=== PATIENT | female | born 1960 | race Caucasian/White ===

== ENCOUNTER → 2016-10-25 | Outpatient (CLI) | payer OTHER ==
--- NOTE | ~2016-10-25 | 2DMMODE ---
[facility] [address] [place] [address] 2 D/M-MODE ECHOCARDIOGRAM Name: SADIE MORENO Room #: REG CL [facility]#: [id number] Admission: 10/25/16 Attend Phys: Rhett Andrade Discharge: Date of : 64 Date of Service: 10/25/16 [facility] Report #: [id number] THIS REPORT FOR: //name// APPROVED REPORT Study performed: 10/25/2016 09:46:46 EXAM: Comprehensive 2D, Doppler, and color-flow Echocardiogram Patient Location: Out-Patient Status: routine Other Information Study Quality: Adequate Indications Chest Pain 2D Dimensions RVDd: 38.04 mm LVEF(%): 70.23 (>50%) IVSd: 12.41 (7-11mm) LVOT Diam: 22.85 (18-24mm) LVDd: 49.09 mm PWd: 9.57 (7-11mm) Ascending Ao: 35.56 (22-36mm) LVDs: 29.55 (25-40mm) Aortic Root: 35.82 mm Yancey's LVEF: 70.23 % Volumes Left Atrial Volume (Systole) Single Plane 4CH: 51.47 mL Single Plane 2CH: 40.06 mL LA ESV Index: 20.00 mL/m2 Aortic Valve AoV Peak Huber.: 1.28 m/s AO Peak Gr.: 6.51 mmHg LVOT Max P.37 mmHg LVOT Max V: 1.16 m/s JACI Vmax: 3.72 cm2 Mitral Valve E/A Ratio: 0.9 MV Decel. Time: 183.94 ms MV E Max Huber.: 0.68 m/s MV A Huber.: 0.77 m/s MV PHT: 53.34 ms IVRT: 96.[address] [facility] [place] [address] 2 D/M-MODE ECHOCARDIOGRAM Name: SADIE MORENO Room #: REG HERN[place]N John#: [id number] Admission: 10/25/16 Attend Phys: Rhett Andrade Discharge: Date of : 64 Date of Service: 10/25/16 [facility] Report #: [id number] Pulmonary Valve PV Peak Huber.: 1.01 m/s PV Peak Gr.: 4.06 mmHg Pulmonary Vein P Vein S: 0.61 m/s P Vein A: 0.35 m/s P Vein D: 0.40 m/s P Vein A Dur.: 120.0 msec P Vein S/D Ratio: 1.52 Tricuspid Valve TR Peak Huber.: 2.68 m/s RAP Estimate: 5.00 mmHg TR Peak Gr.: 28.65 mmHg PA Pressure: 34.00 mmHg Left Ventricle The left ventricle is normal size. There is normal LV segmental wall motion. Mild concentric left ventricular hypertrophy. The left ventricular systolic function is normal. The left ventricular ejection fraction is within the normal range. LVEF is 65%. Grade I - abnormal relaxation pattern. Right Ventricle The right ventricle is normal size. The right ventricular systolic function is normal. Atria The left atrium size is normal. The right atrium size is normal. Aortic Valve The aortic valve is normal in structure. Trace aortic regurgitation. There is no aortic valvular stenosis. Mitral Valve The mitral valve is normal in structure. Trace mitral regurgitation. Tricuspid Valve The tricuspid valve is normal in structure. There is trace tricuspid regurgitation. The right atrial pressure is estimated at 5 mmHg. There is mild pulmonary hypertension with an estimated PAP of 34 mmHg. Pulmonic Valve The pulmonary valve is normal in structure. Trace pulmonic regurgitation. [facility] [address] [place] [address] 2 D/M-MODE ECHOCARDIOGRAM Name: SADIE MORENO Room #: REG CL Dora#: [id number] Admission: 10/25/16 Attend Phys: Rhett Andrade Discharge: Date of : 64 Date of Service: 10/25/16 [facility] Report #: [id number] Great Vessels The aortic root is normal in size. The ascending aorta is normal in size. IVC is normal in size and collapses >50% with inspiration. Pericardium There is no pericardial effusion. <Conclusion> The left ventricle is normal size. LVEF is 65%. The aortic valve is normal in structure. Trace aortic regurgitation. The mitral valve is normal in structure. Trace mitral regurgitation. The tricuspid valve is normal in structure. There is trace tricuspid regurgitation. The right atrial pressure is estimated at 5 mmHg. There is mild pulmonary hypertension with an estimated PAP of 34 mmHg. The pulmonary valve is normal in structure. Trace pulmonic regurgitation. <ELECTRONICALLY SIGNED> By: Rhett Gilmore MD 10/25/16 [id number] Rhett Gilmore MD /INF
== END ==
LOC: NUC 08:10
DX: R07.9 Chest pain, unspecified (principal)